=== PATIENT | male | born 1965 | race Caucasian/White ===

== ENCOUNTER → 2016-08-06 | Outpatient (CLI) | payer OTHER ==
[~2016-08-06] MED LIST: GADAVIST IV PRN; TRIA3AER NAE
--- NOTE | 2016-08-06 13:39 | DIAGNOSTIC IMAGING REPORT ---
MRI THORACIC SPINE COMBO CLINICAL HISTORY: Follow-up paraspinous mass. COMPARISON STUDY: MRI of the thoracic spine dated 08/22/2015. TECHNIQUE: MRI of the thoracic spine is performed utilizing various T1 and T2-weighted sequences in the axial and sagittal planes. Contrast-enhanced sequences are acquired following the IV administration of 10 cc of Gadavist. FINDINGS: Vertebral body height and alignment are maintained throughout the thoracic spine. Normal marrow signal intensity is preserved throughout the visualized bony structures. No destructive osseous lesion is seen. The transverse and spinous processes are intact as visualized. There is mild degenerative disc desiccation and loss of height throughout the thoracic spine. No large disc herniation is identified. Minimal posterior disc bulge is seen at T5-T6 and T10-T11. There is no significant acquired compromise of the central canal. No significant neural foraminal stenosis is seen throughout the thoracic spine. The thoracic spinal cord is normal in morphology and signal intensity. The conus medullaris terminates at the T12-L1 interspace. No abnormal enhancement is seen on the postcontrast images. Again seen is a right paravertebral soft tissue nodule at the level of T5. This is best seen on axial image #10 and measures 2.5 x 1.9 x 1.3 cm. This lesion is T2 hyperintense, T1 hypointense, and demonstrates patchy postcontrast enhancement. No additional similar-appearing paraspinous lesions are identified. IMPRESSION: 1. No significant change in the appearance of a right-sided paraspinous nodule at the level of T5 as compared to the 08/22/2015 examination. This is pathologically indeterminant but likely neurogenic in origin. 2. No disc herniation, central canal stenosis, or neuroforaminal narrowing is identified involving the thoracic spine. Dictated: 08/06/2016 12:34 PM Transcribed: 08/06/2016 1:38 PM [place] Electronically signed by: Jamie Contreras M.D. 08/06/2016 1:53 PM Dictated Date/Time: 08/06/2016 12:34 PM
== END | disposition home or self-care (01) ==
LOC: C.MRI 11:35
PROVIDERS: ATTEND Family Medicine
DX: D36.10 Benign neoplasm of peripheral nerves and autonomic nervous system, unspecified (principal)